=== PATIENT | male | born 1980 | race Two or more races ===

== ENCOUNTER 2016-11-11 23:05 | Emergency (ER) | payer BC, MEDICAID ==
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
== END 2016-11-12 01:06 | disposition home or self-care (01) ==
LOC: CED 23:05
DX: S50.01XA Contusion of right elbow, initial encounter (principal); S60.221A Contusion of right hand, initial encounter; Z23 Encounter for immunization; K85.90 Acute pancreatitis without necrosis or infection, unspecified; F17.210 Nicotine dependence, cigarettes, uncomplicated; V03.99XA Pedestrian with other conveyance injured in collision with car, pick-up truck or van, unspecified whether traffic or nontraffic accident, initial encounter; Y92.410 Unspecified street and highway as the place of occurrence of the external cause
CPT/HCPCS: 73080; 73090; 73130; 90471; 90715; 99284